=== PATIENT | male | born 1950 | race Caucasian/White ===

== ENCOUNTER 2021-03-09 13:02 | Observation (INO) | payer MEDICARE, OTHER ==
[~2021-03-09] VITALS: Ht 188 cm; Wt 114.0 kg
[2021-03-09] MEDS ORDERED: HYDROXYCHLOR200 M1 PO (14:09)
[2021-03-09] MEDS ORDERED: LOSARTAN POTASS25 MG PO (14:09)
[2021-03-09] MEDS ORDERED: HYDROCODONE BIT10 MG (14:10)
[2021-03-09 14:30] LABS: HEMATOCRIT 49.8 % (39.0-50.0); HEMOGLOBIN 16.8 g/dl (14.0-18.0); IMMATURE GRANULOCYTES 0.3 % (0.0-5.0); MEAN CELL VOLUME 89.7 fL CALC (80.0-100.0); MEAN CORPUSCULAR HGB 30.3 pG CALC (26.0-32.0); MEAN CORPUSCULAR HGB CONC 33.7 g/dL CAL (32.0-36.0); NEUT# 9.13 thou/uL (1.82-7.42); RED BLOOD COUNT 5.55 mill/uL (4.70-6.10); RED CELL DISTRI WIDTH 13.3 % (11.5-15.5)
[2021-03-09 14:45] LABS: ALBUMIN 4.1 g/dL (3.2-5.0); ALKALINE PHOSPHATASE 159 u/l (38-126); ANION GAP 11 (6-22 (CALC)); BUN 18 mg/dL (8-23); BUN/CREATININE RATIO 26 (12-20 (CALC)); CARBON DIOXIDE 26 mmol/l (22-30); CHLORIDE 103 mmol/l (95-108); CREATININE 0.7 mg/dL (0.7-1.3); GFR > 60 ML/MIN (>=60 (CALC)); GFR FOR AFR.AMER. > 60 ML/MIN (>=60 (CALC)); POTASSIUM 4.2 mmol/l (3.5-5.1); SGOT/AST 22 u/l (19-48); SODIUM 136 mmol/l (137-146); TOTAL PROTEIN 7.5 g/dL (6.3-8.2)
[2021-03-09 14:56] LABS: MYOGLOBIN 30 ng/mL (0 - 121)
[2021-03-09 19:31] VITALS: BP 162/82
[2021-03-10] VITALS: BP 163/88
[2021-03-10 04:00] VITALS: BP 185/89
[2021-03-10 05:31] LABS: HEMATOCRIT 49.2 % (39.0-50.0); HEMOGLOBIN 16.6 g/dl (14.0-18.0); IMMATURE GRANULOCYTES 0.3 % (0.0-5.0); MEAN CELL VOLUME 89.9 fL CALC (80.0-100.0); MEAN CORPUSCULAR HGB 30.3 pG CALC (26.0-32.0); MEAN CORPUSCULAR HGB CONC 33.7 g/dL CAL (32.0-36.0); NEUT# 5.85 thou/uL (1.82-7.42); RED BLOOD COUNT 5.47 mill/uL (4.70-6.10); RED CELL DISTRI WIDTH 13.1 % (11.5-15.5)
[2021-03-10 06:07] LABS: ALBUMIN 3.7 g/dL (3.2-5.0); ALKALINE PHOSPHATASE 134 u/l (38-126); ANION GAP 13 (6-22 (CALC)); BILIRUBIN, TOTAL 0.8 mg/dL (0.0-1.4); BUN 15 mg/dL (8-23); BUN/CREATININE RATIO 23 (12-20 (CALC)); C-REACTIVE PROTEIN 6.1 mg/dL (0-0.9); CARBON DIOXIDE 23 mmol/l (22-30); CHLORIDE 105 mmol/l (95-108); CREATININE 0.7 mg/dL (0.7-1.3); GFR > 60 ML/MIN (>=60 (CALC)); GFR FOR AFR.AMER. > 60 ML/MIN (>=60 (CALC)); POTASSIUM 4.6 mmol/l (3.5-5.1); SGOT/AST 20 u/l (19-48); SODIUM 135 mmol/l (137-146); TOTAL PROTEIN 6.8 g/dL (6.3-8.2)
[2021-03-10] MEDS ORDERED: ANORO ELLIPTA 61 AER IN (07:01)
[2021-03-10] MEDS ORDERED: LANTUS100 UNIT SC (07:01)
[2021-03-10] MEDS ORDERED: CREON1 CAP PO (07:02)
[2021-03-10] MEDS ORDERED: SERTRALINE25 MG PO (07:02)
[2021-03-10] MEDS ORDERED: LISINOPRIL10 MG PO (07:02)
[2021-03-10] MEDS ORDERED: GLIMEPIRIDE2 MG PO (07:03)
[2021-03-10] MEDS ORDERED: NIACINAMIDE XX (07:04)
[2021-03-10] MEDS ORDERED: [UNRECOGNIZED DRUG - OTHER] PO (07:04)
[2021-03-10] MEDS ORDERED: CITRACA1 PO (07:04)
[2021-03-10] MEDS ORDERED: ACITRETIN10 MG (07:05)
[2021-03-10] MEDS ORDERED: D31000 UNIT PO (07:05)
[2021-03-10] MEDS ORDERED: CRESTOR10 MG PO (07:05)
[2021-03-10] MEDS ORDERED: PROBIOTI2 (07:05)
[2021-03-10] MEDS ORDERED: ACETYL SALICYLIC ACI XX (07:06)
[2021-03-10 08:00] VITALS: BP 176/88
[2021-03-10] MEDS ORDERED: COZAAR100 MG PO (09:20)
[2021-03-10] MEDS ORDERED: LORTAB 5/3255 MG PO (09:22)
[2021-03-10] MEDS ORDERED: RAYOS5 MG PO (09:25)
[2021-03-10] MEDS ORDERED: METFORMIN500 M2 PO (09:25)
[2021-03-10] MEDS ORDERED: TENORMIN PO (09:26)
[2021-03-10] MEDS ORDERED: KETOCONAZOLE2 % EX (09:30)
[2021-03-10] MEDS ORDERED: FUROSEMIDE20 MG PO (09:31)
[2021-03-10] MEDS ORDERED: DOXY-CAPS100 MG PO (09:32)
[2021-03-10 10:57] VITALS: BP 148/75
[2021-03-10] MEDS ORDERED: ZPAK PO (12:36)
[2021-03-10] MEDS ORDERED: ASPIRIN REGULA325 M1 PO (12:36)
== END 2021-03-10 14:19 | disposition home or self-care (01) ==
LOC: ED 13:02 → ED-I 14:15 → ED 14:15 → MS2 17:52 → ED 18:00 → ED-I 18:00 → MS2 03-10 14:19
PROVIDERS: Emergency Medicine; ADMIT Internal Medicine; ATTEND Internal Medicine
PROC: XW033E5 Introduction of Remdesivir Anti-infective into Peripheral Vein, Percutaneous Approach, New Technology Group 5 (ICD-10-PCS; principal; 2021-03-10)
DX: U07.1 COVID-19 (principal); J12.82 Pneumonia due to coronavirus disease 2019; J47.9 Bronchiectasis, uncomplicated; I10 Essential (primary) hypertension; E11.9 Type 2 diabetes mellitus without complications; M35.3 Polymyalgia rheumatica; Z87.01 Personal history of pneumonia (recurrent); Z90.2 Acquired absence of lung [part of]; Z79.84 Long term (current) use of oral hypoglycemic drugs; Z79.4 Long term (current) use of insulin
CPT/HCPCS: J1650

== ENCOUNTER 2021-12-10 13:44 | Emergency (ER) | payer MEDICARE ==
[~2021-12-10] VITALS: Ht 188 cm; Wt 125.0 kg
[~2021-12-10 13:44] MED LIST: ACETYL SALICYLIC ACI XX; ACITRETIN10 MG; ANORO ELLIPTA 61 AER IN; ASPIRIN REGULA325 M1 PO; CITRACA1 PO; COZAAR100 MG PO; CREON1 CAP PO; CRESTOR10 MG PO; D31000 UNIT PO; DOXY-CAPS100 MG PO; FUROSEMIDE20 MG PO; GLIMEPIRIDE2 MG PO; HYDROCODONE BIT10 MG; HYDROXYCHLOR200 M1 PO; KETOCONAZOLE2 % EX; LANTUS100 UNIT SC; LISINOPRIL10 MG PO; LORTAB 5/3255 MG PO; LOSARTAN POTASS25 MG PO; METFORMIN500 M2 PO; NIACINAMIDE XX; PROBIOTI2; RAYOS5 MG PO; SERTRALINE25 MG PO; TENORMIN PO; ZPAK PO; [UNRECOGNIZED DRUG - OTHER] PO
[2021-12-10 13:53] VITALS: BP 155/91
[2021-12-10] MEDS ORDERED: FARXIGA10 MG (14:00)
[2021-12-10] MEDS ORDERED: GLIPIZIDE ER5 MG PO (14:00)
[2021-12-10] MEDS ORDERED: XARELTO10 MG PO (14:01)
[2021-12-10] MEDS ORDERED: SILDENAFIL20 MG (14:01)
[2021-12-10] MEDS ORDERED: BUMETANIDE1 MG PO (14:02)
[2021-12-10] MEDS ORDERED: NAPROXEN250 MG PO (14:03)
[2021-12-10] MEDS ORDERED: GLUCOSAMINE500 M3 PO (14:04)
[2021-12-10 14:48] LABS: HEMATOCRIT 38.9 % (39.0-50.0); HEMOGLOBIN 12.1 g/dl (14.0-18.0); IMMATURE GRANULOCYTES 0.2 % (0.0-5.0); MEAN CORPUSCULAR HGB 25.2 pG CALC (26.0-32.0); MEAN CORPUSCULAR HGB CONC 31.1 g/dL CAL (32.0-36.0); NEUT# 6.04 thou/uL (1.82-7.42); RED BLOOD COUNT 4.8 mill/uL (4.70-6.10); RED CELL DISTRI WIDTH 16.2 % (11.5-15.5)
[2021-12-10 14:52] LABS: ALBUMIN 4.6 g/dL (3.2-5.0); ALKALINE PHOSPHATASE 205 u/l (38-126); ANION GAP 17 (6-22 (CALC)); BUN 17 mg/dL (8-23); BUN/CREATININE RATIO 18 (12-20 (CALC)); CARBON DIOXIDE 26 mmol/l (22-30); CHLORIDE 100 mmol/l (95-108); CREATININE 0.9 mg/dL (0.7-1.3); GFR FOR AFR.AMER. > 60 ML/MIN (>=60 (CALC)); GFR OTHER RACES > 60 ML/MIN (>=60 (CALC)); POTASSIUM 3.8 mmol/l (3.5-5.1); SGOT/AST 32 u/l (19-48); SODIUM 138 mmol/l (137-146)
[2021-12-10 14:57] LABS: BILIRUBIN, TOTAL 0.5 mg/dL (0.0-1.4); TOTAL PROTEIN 8.2 g/dL (6.3-8.2)
[2021-12-10 16:30] LABS: URINE BILIRUBIN - DIPSTICK NEGATIVE (NEGATIVE); URINE BLOOD DIPSTICK NEGATIVE (NEGATIVE); URINE COLOR YELLOW; URINE GLUCOSE - DIPSTICK >=1000 mg/dL (NEGATIVE); URINE KETONE NEGATIVE (NEGATIVE); URINE LEUK ESTERASE NEGATIVE (NEGATIVE); URINE PH 5.5 (4.5-8.0); URINE PROTEIN - DIPSTICK NEGATIVE (NEG-TRACE); URINE SPECIFIC GRAVITY 1.015; URINE UROBILINOGEN - DIPSTICK 0.2 E.U./dL (0.2)
[2021-12-10 16:31] LABS: URINE NITRITE - DIPSTICK NEGATIVE (Negative)
[2021-12-10 17:15] VITALS: BP 155/91
== END 2021-12-10 17:15 | disposition home or self-care (01) ==
LOC: ED 13:44
PROVIDERS: Nurse Practitioner
DX: R60.0 Localized edema (principal); I11.0 Hypertensive heart disease with heart failure; I50.9 Heart failure, unspecified; I42.9 Cardiomyopathy, unspecified; E11.9 Type 2 diabetes mellitus without complications; Z79.84 Long term (current) use of oral hypoglycemic drugs; M79.89 Other specified soft tissue disorders

== ENCOUNTER 2021-12-28 13:15 | Emergency (ER) | payer MEDICARE ==
[~2021-12-28] VITALS: Ht 188 cm; Wt 125.0 kg
[2021-12-28] VITALS (7 sets, daily range): BP systolic 104–124; BP diastolic 52–73
[~2021-12-28 13:15] MED LIST changes: +BUMETANIDE1 MG PO; +FARXIGA10 MG; +GLIPIZIDE ER5 MG PO; +GLUCOSAMINE500 M3 PO; +NAPROXEN250 MG PO; +SILDENAFIL20 MG; +XARELTO10 MG PO
[2021-12-28 14:06] LABS: HEMOGLOBIN 10.8 g/dl (14.0-18.0); IMMATURE GRANULOCYTES 0.1 % (0.0-5.0); MEAN CELL VOLUME 76.3 fL CALC (80.0-100.0); MEAN CORPUSCULAR HGB 23.5 pG CALC (26.0-32.0); MEAN CORPUSCULAR HGB CONC 30.9 g/dL CAL (32.0-36.0); NEUT# 8.07 thou/uL (1.82-7.42); RED BLOOD COUNT 4.59 mill/uL (4.70-6.10); RED CELL DISTRI WIDTH 17.9 % (11.5-15.5)
[2021-12-28 14:26] LABS: ALBUMIN 3.8 g/dL (3.2-5.0); ALKALINE PHOSPHATASE 179 u/l (38-126); ANION GAP 13 (6-22 (CALC)); BILIRUBIN, TOTAL 0.4 mg/dL (0.0-1.4); BUN 21 mg/dL (8-23); BUN/CREATININE RATIO 22 (12-20 (CALC)); C-REACTIVE PROTEIN 1.5 mg/dL (0-0.9); CARBON DIOXIDE 24 mmol/l (22-30); CHLORIDE 100 mmol/l (95-108); GFR FOR AFR.AMER. > 60 ML/MIN (>=60 (CALC)); GFR OTHER RACES > 60 ML/MIN (>=60 (CALC)); POTASSIUM 3.9 mmol/l (3.5-5.1); SGOT/AST 28 u/l (19-48); SODIUM 134 mmol/l (137-146); TOTAL PROTEIN 7.1 g/dL (6.3-8.2)
[2021-12-28] MEDS ORDERED: VIBRAMYCIN100 M2 PO (15:23)
[2021-12-28] MEDS ORDERED: LORTAB 1010 MG PO (15:23)
[2021-12-30] MEDS ORDERED: LORTAB 1010 MG PO (15:42)
== END 2021-12-28 16:40 | disposition home or self-care (01) ==
LOC: ED 13:15
PROVIDERS: Nurse Practitioner
PROC: 0HDLXZZ Extraction of Left Lower Leg Skin, External Approach (ICD-10-PCS; principal; 2021-12-28)
PROC: 0HDKXZZ Extraction of Right Lower Leg Skin, External Approach (ICD-10-PCS; 2021-12-28)
DX: I87.2 Venous insufficiency (chronic) (peripheral) (principal); L97.929 Non-pressure chronic ulcer of unspecified part of left lower leg with unspecified severity; L97.919 Non-pressure chronic ulcer of unspecified part of right lower leg with unspecified severity; L03.116 Cellulitis of left lower limb; L03.115 Cellulitis of right lower limb; M35.3 Polymyalgia rheumatica; I10 Essential (primary) hypertension; E11.9 Type 2 diabetes mellitus without complications; Z79.84 Long term (current) use of oral hypoglycemic drugs

== ENCOUNTER 2022-01-07 12:56 | Inpatient (IN) | payer MEDICARE ==
[~2022-01-07] VITALS: Ht 188 cm; Wt 126.0 kg
[~2022-01-07 12:56] MED LIST changes: +LORTAB 1010 MG PO; -SILDENAFIL20 MG; +SILDENAFIL20 MG PO; +VIBRAMYCIN100 M2 PO
[2022-01-07 14:19] LABS: HEMOGLOBIN 10.5 g/dl (14.0-18.0); IMMATURE GRANULOCYTES 0.2 % (0.0-5.0); MEAN CELL VOLUME 74.3 fL CALC (80.0-100.0); MEAN CORPUSCULAR HGB 22.3 pG CALC (26.0-32.0); NEUT# 8.58 thou/uL (1.82-7.42); RED BLOOD COUNT 4.71 mill/uL (4.70-6.10); RED CELL DISTRI WIDTH 18.6 % (11.5-15.5)
[2022-01-07] MEDS ORDERED: GLUCOTROL XL10 MG PO (14:23)
[2022-01-07 14:28] LABS: INTERNATIONAL NORMALIZED RATIO 1.1 RATIO (0.7-1.3)
[2022-01-07 14:31] LABS: ALKALINE PHOSPHATASE 157 u/l (38-126); ANION GAP 16 (6-22 (CALC)); BUN 19 mg/dL (8-23); BUN/CREATININE RATIO 18 (12-20 (CALC)); CARBON DIOXIDE 28 mmol/l (22-30); CHLORIDE 98 mmol/l (95-108); CREATININE 1.1 mg/dL (0.7-1.3); GFR FOR AFR.AMER. > 60 ML/MIN (>=60 (CALC)); GFR OTHER RACES > 60 ML/MIN (>=60 (CALC)); POTASSIUM 4.3 mmol/l (3.5-5.1); SGOT/AST 29 u/l (19-48); SODIUM 137 mmol/l (137-146); TOTAL PROTEIN 8.3 g/dL (6.3-8.2)
[2022-01-07 14:32] LABS: ALBUMIN 4.6 g/dL (3.2-5.0); BILIRUBIN, TOTAL 0.9 mg/dL (0.0-1.4)
[2022-01-07 18:48] VITALS: BP 124/71
[2022-01-07] MEDS ORDERED: XARELTO20 MG PO (20:29)
[2022-01-07] MEDS ORDERED: LORTAB 1010 MG PO (20:30)
[2022-01-07 22:55] VITALS: BP 115/66
[2022-01-08] VITALS (9 sets, daily range): BP systolic 104–137; BP diastolic 61–77
[2022-01-08 05:28] LABS: HEMATOCRIT 33.1 % (39.0-50.0); HEMOGLOBIN 9.6 g/dl (14.0-18.0); MEAN CELL VOLUME 75.6 fL CALC (80.0-100.0); MEAN CORPUSCULAR HGB 21.9 pG CALC (26.0-32.0); RED BLOOD COUNT 4.38 mill/uL (4.70-6.10); RED CELL DISTRI WIDTH 18.7 % (11.5-15.5)
[2022-01-08 06:01] LABS: ANION GAP 15 (6-22 (CALC)); BUN 21 mg/dL (8-23); BUN/CREATININE RATIO 19 (12-20 (CALC)); CARBON DIOXIDE 28 mmol/l (22-30); CHLORIDE 97 mmol/l (95-108); CREATININE 1.1 mg/dL (0.7-1.3); GFR FOR AFR.AMER. > 60 ML/MIN (>=60 (CALC)); GFR OTHER RACES > 60 ML/MIN (>=60 (CALC)); MAGNESIUM 2.5 mg/dL (1.6-2.3); POTASSIUM 4.7 mmol/l (3.5-5.1); SODIUM 136 mmol/l (137-146)
[2022-01-09 03:41] VITALS: BP 134/75
[2022-01-09 05:50] VITALS: BP 129/73
[2022-01-09 14:14] LABS: ANION GAP 14 (6-22 (CALC)); BUN 22 mg/dL (8-23); BUN/CREATININE RATIO 20 (12-20 (CALC)); CARBON DIOXIDE 28 mmol/l (22-30); CHLORIDE 98 mmol/l (95-108); CREATININE 1.1 mg/dL (0.7-1.3); GFR FOR AFR.AMER. > 60 ML/MIN (>=60 (CALC)); GFR OTHER RACES > 60 ML/MIN (>=60 (CALC)); POTASSIUM 4.3 mmol/l (3.5-5.1); SODIUM 136 mmol/l (137-146)
[2022-01-09 14:30] VITALS: BP 129/73
[2022-01-09 17:53] VITALS: BP 115/58
[2022-01-09 19:00] VITALS: BP 115/58
[2022-01-09 22:48] VITALS: BP 119/71
[2022-01-10 03:49] VITALS: BP 151/81
[2022-01-10 04:00] VITALS: BP 151/81
[2022-01-10 05:41] LABS: HEMATOCRIT 29.5 % (39.0-50.0); HEMOGLOBIN 8.7 g/dl (14.0-18.0); IMMATURE GRANULOCYTES 0.2 % (0.0-5.0); MEAN CELL VOLUME 75.8 fL CALC (80.0-100.0); MEAN CORPUSCULAR HGB 22.4 pG CALC (26.0-32.0); MEAN CORPUSCULAR HGB CONC 29.5 g/dL CAL (32.0-36.0); NEUT# 6.39 thou/uL (1.82-7.42); RED BLOOD COUNT 3.89 mill/uL (4.70-6.10); RED CELL DISTRI WIDTH 18.4 % (11.5-15.5)
[2022-01-10 05:50] LABS: ALKALINE PHOSPHATASE 133 u/l (38-126); BUN 21 mg/dL (8-23); BUN/CREATININE RATIO 20 (12-20 (CALC)); CARBON DIOXIDE 27 mmol/l (22-30); CHLORIDE 101 mmol/l (95-108); GFR FOR AFR.AMER. > 60 ML/MIN (>=60 (CALC)); GFR OTHER RACES > 60 ML/MIN (>=60 (CALC)); SGOT/AST 17 u/l (19-48); SODIUM 135 mmol/l (137-146)
[2022-01-10 05:52] LABS: ANION GAP 12 (6-22 (CALC)); POTASSIUM 4.5 mmol/l (3.5-5.1)
[2022-01-10 05:54] LABS: ALBUMIN 3.5 g/dL (3.2-5.0); BILIRUBIN, TOTAL 0.3 mg/dL (0.0-1.4); TOTAL PROTEIN 6.2 g/dL (6.3-8.2)
[2022-01-10 06:51] VITALS: BP 123/71
[2022-01-10 14:39] VITALS: BP 123/71
[2022-01-10 19:22] VITALS: BP 106/58
[2022-01-11 00:05] VITALS: BP 140/71
[2022-01-11 04:19] VITALS: BP 136/77
[2022-01-11 06:19] VITALS: BP 133/70
[2022-01-11 10:25] VITALS: BP 117/63
[2022-01-11 16:08] VITALS: BP 123/69
[2022-01-11 19:10] VITALS: BP 153/77
[2022-01-12 00:26] VITALS: BP 138/71
[2022-01-12 05:19] LABS: HEMOGLOBIN 9.9 g/dl (14.0-18.0); MEAN CELL VOLUME 73.9 fL CALC (80.0-100.0); MEAN CORPUSCULAR HGB 21.5 pG CALC (26.0-32.0); MEAN CORPUSCULAR HGB CONC 29.1 g/dL CAL (32.0-36.0); RED BLOOD COUNT 4.6 mill/uL (4.70-6.10); RED CELL DISTRI WIDTH 18.8 % (11.5-15.5)
[2022-01-12 05:42] LABS: ANION GAP 15 (6-22 (CALC)); BUN 18 mg/dL (8-23); BUN/CREATININE RATIO 16 (12-20 (CALC)); CARBON DIOXIDE 28 mmol/l (22-30); CHLORIDE 97 mmol/l (95-108); CREATININE 1.1 mg/dL (0.7-1.3); GFR FOR AFR.AMER. > 60 ML/MIN (>=60 (CALC)); GFR OTHER RACES > 60 ML/MIN (>=60 (CALC)); MAGNESIUM 2.3 mg/dL (1.6-2.3); POTASSIUM 4.3 mmol/l (3.5-5.1); SODIUM 136 mmol/l (137-146)
[2022-01-12 06:09] VITALS: BP 145/84
[2022-01-12 10:24] VITALS: BP 126/71
[2022-01-12] MEDS ORDERED: PROTONIX40 M2 PO (10:26)
[2022-01-12] MEDS ORDERED: LEVAQUIN750 M1 PO (10:27)
== END 2022-01-12 14:03 | disposition home health service (06) | DRG 603 ==
LOC: ED 12:56 → MS2 17:47
PROVIDERS: Internal Medicine; Nurse Practitioner Family; ADMIT Internal Medicine; ATTEND Internal Medicine
DX: L03.116 Cellulitis of left lower limb (principal); E87.20 Acidosis, unspecified; I48.19 Other persistent atrial fibrillation; D62 Acute posthemorrhagic anemia; I50.32 Chronic diastolic (congestive) heart failure; I87.312 Chronic venous hypertension (idiopathic) with ulcer of left lower extremity; L97.929 Non-pressure chronic ulcer of unspecified part of left lower leg with unspecified severity; L03.115 Cellulitis of right lower limb; I11.0 Hypertensive heart disease with heart failure; E11.9 Type 2 diabetes mellitus without complications; I27.20 Pulmonary hypertension, unspecified; J47.9 Bronchiectasis, uncomplicated; I49.5 Sick sinus syndrome; R19.5 Other fecal abnormalities; D75.1 Secondary polycythemia; M35.3 Polymyalgia rheumatica; B96.5 Pseudomonas (aeruginosa) (mallei) (pseudomallei) as the cause of diseases classified elsewhere; Z79.84 Long term (current) use of oral hypoglycemic drugs; Z79.01 Long term (current) use of anticoagulants; Z95.0 Presence of cardiac pacemaker; Z90.2 Acquired absence of lung [part of]; Z79.891 Long term (current) use of opiate analgesic; Z79.52 Long term (current) use of systemic steroids; Z86.16 Personal history of COVID-19; E11.622 Type 2 diabetes mellitus with other skin ulcer
CPT/HCPCS: J1756; J3370; S0164

== ENCOUNTER 2022-03-29 09:40 | Day surgery (SDC) | payer MEDICARE ==
[~2022-03-29] VITALS: Ht 188 cm; Wt 114.8 kg
[~2022-03-29 09:40] MED LIST changes: +FARXIGA SC; -FARXIGA10 MG; +FARXIGA10 MG SC; +GLUCOTROL XL10 MG PO; +LEVAQUIN750 M1 PO; +PROTONIX40 M2 PO; +XARELTO20 MG PO
[2022-03-29] MEDS ORDERED: OZEMPIC2 MG IJ (09:57)
[2022-03-29] MEDS ORDERED: ALBUTEROL SUL0.083 % IN (09:59)
[2022-03-29] MEDS ORDERED: TRELEGY ELLIPTA1 AER (10:00)
[2022-03-29 12:29] VITALS: BP 147/89
== END 2022-03-29 12:29 | disposition home or self-care (01) ==
LOC: ENDO 09:40 → ORM 11:00 → ENDO 12:29 → ORM 13:50
PROVIDERS: ATTEND Internal Medicine Gastroenterology
PROC: 0DBK8ZX Excision of Ascending Colon, Via Natural or Artificial Opening Endoscopic, Diagnostic (ICD-10-PCS; principal; 2022-03-29)
PROC: 0DBL8ZX Excision of Transverse Colon, Via Natural or Artificial Opening Endoscopic, Diagnostic (ICD-10-PCS; 2022-03-29)
PROC: 0DBP8ZX Excision of Rectum, Via Natural or Artificial Opening Endoscopic, Diagnostic (ICD-10-PCS; 2022-03-29)
PROC: 0DB98ZX Excision of Duodenum, Via Natural or Artificial Opening Endoscopic, Diagnostic (ICD-10-PCS; 2022-03-29)
PROC: 0DB78ZX Excision of Stomach, Pylorus, Via Natural or Artificial Opening Endoscopic, Diagnostic (ICD-10-PCS; 2022-03-29)
PROC: 0DB38ZX Excision of Lower Esophagus, Via Natural or Artificial Opening Endoscopic, Diagnostic (ICD-10-PCS; 2022-03-29)
DX: K21.01 Gastro-esophageal reflux disease with esophagitis, with bleeding (principal); K29.71 Gastritis, unspecified, with bleeding; K31.89 Other diseases of stomach and duodenum; K55.20 Angiodysplasia of colon without hemorrhage; E11.69 Type 2 diabetes mellitus with other specified complication; D12.2 Benign neoplasm of ascending colon; D12.3 Benign neoplasm of transverse colon; K62.1 Rectal polyp; K64.8 Other hemorrhoids; D62 Acute posthemorrhagic anemia; E78.5 Hyperlipidemia, unspecified; I48.20 Chronic atrial fibrillation, unspecified; I10 Essential (primary) hypertension; M35.3 Polymyalgia rheumatica; Z79.85 Long-term (current) use of injectable non-insulin antidiabetic drugs; Z79.84 Long term (current) use of oral hypoglycemic drugs

== ENCOUNTER 2022-07-12 07:45 | Day surgery (SDC) | payer MEDICARE ==
[~2022-07-12] VITALS: Ht 188 cm; Wt 53.1 kg
[~2022-07-12 07:45] MED LIST changes: +ALBUTEROL SUL0.083 % IN; +EQ OMEPRAZOLE20 MG PO; +OZEMPIC2 MG IJ; +TRELEGY ELLIPTA1 AER; +TRESIBA100 UNIT/M IN
[2022-07-12 10:35] VITALS: BP 128/84
== END 2022-07-12 10:49 | disposition home or self-care (01) ==
LOC: ORM 07:45
PROVIDERS: ATTEND Internal Medicine Gastroenterology
PROC: 0DBK8ZX Excision of Ascending Colon, Via Natural or Artificial Opening Endoscopic, Diagnostic (ICD-10-PCS; principal; 2022-07-12)
PROC: 0DBL8ZX Excision of Transverse Colon, Via Natural or Artificial Opening Endoscopic, Diagnostic (ICD-10-PCS; 2022-07-12)
PROC: 0DBN8ZX Excision of Sigmoid Colon, Via Natural or Artificial Opening Endoscopic, Diagnostic (ICD-10-PCS; 2022-07-12)
PROC: 0DBP8ZX Excision of Rectum, Via Natural or Artificial Opening Endoscopic, Diagnostic (ICD-10-PCS; 2022-07-12)
PROC: 0DBH8ZX Excision of Cecum, Via Natural or Artificial Opening Endoscopic, Diagnostic (ICD-10-PCS; 2022-07-12)
DX: D50.9 Iron deficiency anemia, unspecified (principal); D12.2 Benign neoplasm of ascending colon; D12.0 Benign neoplasm of cecum; D12.5 Benign neoplasm of sigmoid colon; D12.3 Benign neoplasm of transverse colon; K62.1 Rectal polyp; K57.30 Diverticulosis of large intestine without perforation or abscess without bleeding; K64.8 Other hemorrhoids; E11.69 Type 2 diabetes mellitus with other specified complication; K22.70 Barrett's esophagus without dysplasia; E78.5 Hyperlipidemia, unspecified; I48.20 Chronic atrial fibrillation, unspecified; I10 Essential (primary) hypertension; M35.3 Polymyalgia rheumatica; Z79.85 Long-term (current) use of injectable non-insulin antidiabetic drugs; Z87.19 Personal history of other diseases of the digestive system; Z86.010 Personal history of colon polyps

== ENCOUNTER 2023-11-27 09:09 | Emergency (ER) | payer MEDICARE ==
[~2023-11-27] VITALS: Ht 188 cm; Wt 101.2 kg
[2023-11-27] MEDS ORDERED: MORPHINE SULFATE 4 MG/ML VIAL IM ONE (10:05)
[2023-11-27 11:00] VITALS: BP 161/90
[2023-11-27] MEDS ORDERED: CYCLOBENZAPRINE10 MG PO ×2 (11:27→11:36)
== END 2023-11-27 12:11 | disposition home or self-care (01) ==
LOC: ED 09:09
DX: S39.012A Strain of muscle, fascia and tendon of lower back, initial encounter (principal); I10 Essential (primary) hypertension; E11.9 Type 2 diabetes mellitus without complications; M35.3 Polymyalgia rheumatica; X58.XXXA Exposure to other specified factors, initial encounter; Z95.0 Presence of cardiac pacemaker; Z79.4 Long term (current) use of insulin; Z79.85 Long-term (current) use of injectable non-insulin antidiabetic drugs

== ENCOUNTER 2024-03-05 12:58 | Inpatient (IN) | payer MEDICARE ==
[~2024-03-05] VITALS: Ht 188 cm; Wt 78.4 kg
[2024-03-05] VITALS (35 sets, daily range): BP systolic 113–142; BP diastolic 50–110
[~2024-03-05 12:58] MED LIST changes: +ABILIFY10 MG PO; +B121000 MCG PO; +CYCLOBENZAPRINE10 MG PO; +GLUCOSAMINE SULFATE XX; +PROSCAR5 MG PO; +TAMSULOSIN0.4 MG PO
--- NOTE | 2024-03-05 13:15 | NUR ---
PT TRIAGED AND PLACED BACK INTO ER LOBBY
--- NOTE | 2024-03-05 14:06 | NUR ---
PT TO ROOM WITH STEADY GAIT
[2024-03-05] MEDS ORDERED: AZITHROMYCIN 250 MG/TAB PO ONE (14:30)
[2024-03-05] MEDS ORDERED: IPRATROPIUM-Albuterol 0.5MG-2.5MG/3 ML NEB ONE ×2 (14:30)
[2024-03-05] MEDS ORDERED: methylPREDNISolone SODIUM SUCC 125 MG/2 ML SDV IV ONE (14:30)
[2024-03-05] MEDS ORDERED: cefTRIAXone SODIUM 2 GM in SODIUM CHLORIDE 0.9% 100 ML IV ONE (14:30)
[2024-03-05] MEDS ORDERED: SODIUM CHLORIDE 0.9% 1,000 ML IV ONE (14:30)
[2024-03-05 14:56] LABS: BASO% 0.2 % (0-3); HEMATOCRIT 47.3 % (39.0-50.0); HEMOGLOBIN 16.3 g/dl (14.0-18.0); IMMATURE GRANULOCYTES 0.7 % (0.0-5.0); LYMPH% 4.4 % (15-41); MEAN CORPUSCULAR HGB 30.5 pG CALC (26.0-32.0); MEAN CORPUSCULAR HGB CONC 34.5 g/dL CAL (32.0-36.0); MONO% 5.6 % (2-13); NEUT# 17.28 thou/uL (1.82-7.42); NEUT% 89.1 % (42-76); RED BLOOD COUNT 5.34 mill/uL (4.70-6.10); RED CELL DISTRI WIDTH 15.3 % (11.5-15.5)
--- NOTE | 2024-03-05 15:00 | NUR ---
PATIENT NOTED IN BED WITH HOB ELEVATED. SPOUSE AT BEDSIDE. HE IS ON O2 @ 2L. NO ACUTE DISTRESS NOTED AT THIS TIME.
[2024-03-05 15:04] LABS: ALBUMIN 4.3 g/dL (3.2-5.0); CREATININE 0.8 mg/dL (0.7-1.3); TOTAL PROTEIN 7.1 g/dL (6.3-8.2)
[2024-03-05 15:11] LABS: MEAN CELL VOLUME 88.6 fL CALC (80.0-100.0); POTASSIUM 3.5 mmol/l (3.5-5.1)
[2024-03-05] MEDS ORDERED: OSELTAMIVIR PHOSPHATE 75 MG/TAB CAP PO ONE (15:35)
--- NOTE | 2024-03-05 16:00 | NUR ---
NO ACUTE DISTRESS NOTED, SPOUSE AT BEDSIDE.
[2024-03-05] MEDS ORDERED: MAGNESIUM HYDROXIDE 30 ML UDC PO PRN (16:40)
[2024-03-05] MEDS ORDERED: ACETAMINOPHEN 325 MG/TAB PO PRN (16:40)
[2024-03-05] MEDS ORDERED: SODIUM CHLORIDE 0.9% 1,000 ML IV PRN (16:40)
[2024-03-05] MEDS ORDERED: INSULIN LISPRO 100 UNITS/ML ML SC SCH (17:00)
[2024-03-05] MEDS ORDERED: Pantoprazole Sodium 40 MG VIAL (Protonix) IV SCH (17:00)
[2024-03-05] MEDS ORDERED: MOUNJARO7.5 M1 (18:07)
--- NOTE | 2024-03-05 18:15 | NUR ---
PATIENT TAKEN TO ICU ROOM 8 VIA WHEELCHAIR ON O2 @ 2L NC. PATIENT NOTED STABLE AT THIS TIME.
--- NOTE | 2024-03-05 18:15 | NUR ---
PATIENT RECEIVED FROM ER VIA WHEELCHAIR. PATIENT AMBULATED TO BED WITH STANDBY ASSIST. PATIENT AXO X3. S1S2 NOTED, HR REGULAR. LUNG SOUNDS COARSE, PRODUCTIVE COUGH NOTED, NO SOB NOTED, ON 2L O2 NC. ABDOMEN SOFT, NON DISTENDED, NON TENDER, WITH ACTIVE BOWEL SOUNDS. PULSES STRONG IN ALL EXTREMITIES. SKIN WARM AND DRY. CALL LIGHT IN REACH.
[2024-03-05] MEDS ORDERED: IPRATROPIUM-Albuterol 0.5MG-2.5MG/3 ML NEB SCH (19:00)
--- NOTE | 2024-03-05 19:30 | NUR ---
RECD PT IN BEDSIDE REPORT FROM RN. PATIENT HAD EXPLOSIVE BM WITH RECENT HX OF EXTENSIVE ABT USE, BM WATERY AND FOUL SMELLING - SENT TO LAB FOR CDIFF R/O. ECUCATED DUTY OFFICER LIGHT, DEMONSTRATED UNDERSTANDING. FALL PRECAUITIONS IN PLACE.
[2024-03-05] MEDS ORDERED: ENOXAPARIN SODIUM 40 MG/0.4 ML SYR SC SCH (21:00)
[2024-03-05] MEDS ORDERED: OSELTAMIVIR PHOSPHATE 75 MG/TAB CAP PO SCH (21:00)
[2024-03-05] MEDS ORDERED: methylPREDNISolone Sod Succ 40 MG/ML SDV IV SCH (21:00)
[2024-03-05 21:01] LABS: C. DIFFICILE TOXIN A&B NEGATIVE (NEGATIVE)
--- NOTE | 2024-03-05 21:30 | NUR ---
PT ORDERED TO RECEIVE LOVENOX PER MD ORDER. DURING PT ADMISSION, DISCUSSED ALLERGIES AND SENSITIVITIES WITH PATIENT AND AND PT COMMUNICATED A PROFOUND HISTORY FOR REPEATED AND LIFE THREATENING GI BLEEDS SECONDARY TO ANTICOAG USE AND LOW MOLECULAR WEIGHT HEPARINS (PER PT AND REPORT). MD ORDERED LOVENOX FOR 2100 ADMINISTRATION. HELD MED PER NURSING INTERVENTION BASED ON PATIENT SAFETY - NOTIFIED , DR TOLLIVER, DR VAZQUEZ - NOTIFIED DR VAZQUEZ THAT SCDS WERE PLACED ON THE PT FOR VTE IN LIGHT OF THE MEDICATION BEING HELD DUE TO ADVERSE EFFECT HISTORY. NOTED PATIENT REPORTS AND DOCUMENTED ALLERGY, ALERT BAND PLACED ON PATIENT.
--- NOTE | 2024-03-05 22:00 | NUR ---
PATIENT CLEANED UP, ASSSITED WITH PARTIAL BED BATH AND LINENS CHANGED. ADMISSION COMPLETED, ASSESSMENT COMPLETED, DENIES PAIN OR SOB AT THIS TIME. REMAINS STABLE AND WITHOUT DISTRESS, RESTING COMFORTABLY WITH CALL LIGHT WITHIN REACH.
[2024-03-06] VITALS (88 sets, daily range): BP systolic 117–175; BP diastolic 70–135
--- NOTE | 2024-03-06 00:47 | NUR ---
PATIENT SLEEPING COMFORTABLY AT THSI TIME, NO NEEDS AT THIS TIME. NO DISTRESS NOTED. CALL LIGHT WITHIN REACH
--- NOTE | 2024-03-06 01:41 | NUR ---
CALLED TO ROOM BY PT FOR SELF REMOVAL OF IV. COMPLETE BED LINEN AND GOWN CHANGE DUE TO IVF RUNNING INTO BED. FLUID REPLACED, IV REPLACED. #20 LW X 1 STICK, (+) BLOOD RETURN, PATENT WITH NO SIGN OF INFILTRATION OR EXTRAVASATION. TOLERATED WELL. REPOSITIONED FOR COMFORT AND LEFT WITH CALL LIGHT WITHIN REACH
--- NOTE | 2024-03-06 04:23 | NUR ---
PT DEMONSTRATES MULTIPLE DESATURATIONS WITH DIFFICULTY WITH RECOVERY, RETIMED 2V SCHEDULED FOR 0500AM TO 1V PORTABLE FOR PROGRESSION WITH RETIMED 2V FOR LATER IN AM SHOULD PT BE ABLE TO RECOVER FROM HIGH MOVEMENTS AND EXERTION BETTER OR MORE IMPROVED.
--- NOTE | 2024-03-06 05:31 | NUR ---
PATIENT RESTING CALMLY WITH NO COMPLAINT OF PAIN OR SOB AT THIS TIME, RESTING WELL WITH CALL LIGHT WITHIN REACH
[2024-03-06 05:52] LABS: BASO% 0.1 % (0-3); HEMOGLOBIN 15.9 g/dl (14.0-18.0); IMMATURE GRANULOCYTES 0.8 % (0.0-5.0); LYMPH% 4.7 % (15-41); MEAN CORPUSCULAR HGB 30.1 pG CALC (26.0-32.0); MEAN CORPUSCULAR HGB CONC 33.8 g/dL CAL (32.0-36.0); MONO% 2.5 % (2-13); NEUT# 13.47 thou/uL (1.82-7.42); NEUT% 91.9 % (42-76); RED BLOOD COUNT 5.28 mill/uL (4.70-6.10); RED CELL DISTRI WIDTH 15.4 % (11.5-15.5)
[2024-03-06 06:06] LABS: BILIRUBIN, TOTAL 1.3 mg/dL (0.2-1.3); CREATININE 0.9 mg/dL (0.7-1.3); MAGNESIUM 2.1 mg/dL (1.6-2.3); POTASSIUM 3.2 mmol/l (3.5-5.1); TOTAL PROTEIN 6.9 g/dL (6.3-8.2)
--- NOTE | 2024-03-06 07:00 | NUR ---
REPORT RECEIVED FROM OFF GOING NURSE.
--- NOTE | 2024-03-06 07:30 | NUR ---
IN TO SEE PATIENT, SPOUSE AT BEDSIDE. BRANDEN AND DR. DELGADILLO MADE AWARE OF ALLERGY TO BLOOD THINNERS.
--- NOTE | 2024-03-06 08:00 | NUR ---
PATIENT NOTED LYING IN BED WITH HOB ELEVATED. NO ACUTE DISTRESS NOTED AT THIS TIME. HE IS HAVING BREAKFAST, SPOUSE AT BEDSIDE. VSS. HE IS ON O2 @ 2L VIA NC WITH SATURATION IN THE MID TO HIGH 90S. WHEEZES AND CRACKLES NOTED THROUGHOUT LUNGS. BOWEL SOUNDS ACTIVE IN ALL FOUR QUADS. ASSESMENT COMPLETED (SEE INTERVENTIONS).
[2024-03-06] MEDS ORDERED: FLUCONAZOLE 50 MG TAB PO SCH (10:00)
[2024-03-06] MEDS ORDERED: LOSARTAN Potassium 50 MG/TAB PO SCH (15:32)
[2024-03-06] MEDS ORDERED: AZITHROMYCIN 500 MG in SODIUM CHLORIDE 0.9% 250 ML IV SCH (16:00)
[2024-03-06] MEDS ORDERED: PANTOPRAZOLE SODIUM Sesquihydr 40 MG/TAB PO SCH (17:00)
--- NOTE | 2024-03-06 18:00 | NUR ---
PATIENT STATED HIS BLOOD SUGAR HAS BEEN 343 AND NO ONE IS CONCERNED. PATIENT WAS EDUCATED ON PROPER DIET. HE CURRENTLY HAS 3 PACKS OF PEANUT BUTTER CRACKERS ON BEDSIDE TABLE. HE ALSO JUST HAD CHOCOLATE FROSTY BROUGHT IN BY HIS . HE WAS MADE AWARE OF THE FOOD CHOICES AND THE EFFECTS IT HAS ON BLOOD SUGARS. PATIENT VERBALIZED UNDERSTANDING.
--- NOTE | 2024-03-06 19:02 | NUR ---
REPORT GIVEN TO ONCOMING NURSE.
--- NOTE | 2024-03-06 20:00 | NUR ---
RECD PT IN BEDSIDE REPORT FROM RN. PRESENT FOR REPORT. EDUCATION PROVIDED REGARDING MONITOR AND PERSEVERATING ON O2 LEVELS WITH INCREASED ANXIETY INDUCING BEHAVIOR NOT GOOD FOR RECOVERING RESPIRATORY STATUS. PATIENT RESTING COMFORTABLY WITH NO SIGN OF DISTRESS, MONITOR PRIVACY MODE, CALL LIGHT IN REACH
--- NOTE | 2024-03-06 22:00 | NUR ---
PATIENT ASSISTED TO REPOSITION AND TO VOID IN URINAL. URINAL EMPTIED. DENIES COMPLAINTS. NO SHORTNESS OF BREATH NOTED. AFEBRILE AT THIS TIME. PT APPEARS MUCH IMPROVED SINCE LAST NIGHT. STATES HE IS 'FEELING ON THE MEND'. RESTING CALMLY WITH NO COMPLAINTS AND CALL LIGHT WITHIN REACH
[2024-03-07] VITALS (49 sets, daily range): BP systolic 130–166; BP diastolic 69–124
--- NOTE | 2024-03-07 02:00 | NUR ---
PT IS SEEN RESTING COMFORTABLY WITH EYES CLOSED. EXHIBITS NO SIGN OF DISTRESS OR DISCOMFORT. CALL LIGHT SEEN WITHIN REACH
--- NOTE | 2024-03-07 05:01 | NUR ---
PATIENT REMAINS STABLE WITH NO SIGN OF DISTRESS AND CALL LIGHT IN REACH
[2024-03-07 05:48] LABS: BASO% 0.1 % (0-3); HEMATOCRIT 43.7 % (39.0-50.0); HEMOGLOBIN 15.3 g/dl (14.0-18.0); IMMATURE GRANULOCYTES 1.3 % (0.0-5.0); LYMPH% 3.1 % (15-41); MEAN CELL VOLUME 88.1 fL CALC (80.0-100.0); MEAN CORPUSCULAR HGB 30.8 pG CALC (26.0-32.0); MONO% 3.2 % (2-13); NEUT# 13.61 thou/uL (1.82-7.42); NEUT% 92.3 % (42-76); RED BLOOD COUNT 4.96 mill/uL (4.70-6.10); RED CELL DISTRI WIDTH 15.4 % (11.5-15.5)
[2024-03-07 05:53] LABS: ALBUMIN 3.5 g/dL (3.2-5.0); BILIRUBIN, TOTAL 0.8 mg/dL (0.2-1.3); CREATININE 0.8 mg/dL (0.7-1.3); MAGNESIUM 2.4 mg/dL (1.6-2.3); POTASSIUM 2.8 mmol/l (3.5-5.1); TOTAL PROTEIN 6.1 g/dL (6.3-8.2)
--- NOTE | 2024-03-07 08:00 | NUR ---
REPORT RECEIVED FROM NIGHT NURSE. PATIENT AXO X3. S1S2 NOTED, HR REGULAR. EXPIRATORY WHEEZES HEARD IN ALL LOBES, CRACKLES HEARD IN LOWER LUNG LOBES. ABDOMEN SOFT, NON DISTENDED, NON TENDER, WITH ACTIVE BOWEL SOUNDS. PULSES STRONG IN ALL EXTREMITIES. SKIN WDI. CALL LIGHT IN REACH.
[2024-03-07] MEDS ORDERED: POTASSIUM CHLORIDE 20 MEQ/TAB PO SCH (08:30)
--- NOTE | 2024-03-07 10:00 | NUR ---
PATIENT SITTING UP WATCHING TV. AT BEDSIDE. ALL NEEDS MET. CALL LIGHT IN REACH.
--- NOTE | 2024-03-07 12:00 | NUR ---
PATIENT SITTING UP IN BED. DENIES NEEDS AT THIS TIME. CALL LIGHT IN REACH.
[2024-03-07 12:22] LABS: URINE BILIRUBIN - DIPSTICK Negative (NEGATIVE); URINE BLOOD DIPSTICK Negative (NEGATIVE); URINE GLUCOSE - DIPSTICK >=1000 mg/dL (NEGATIVE); URINE KETONE Trace mg/dL (NEGATIVE); URINE LEUK ESTERASE Negative (NEGATIVE); URINE NITRITE - DIPSTICK Negative (Negative); URINE PROTEIN - DIPSTICK 30 mg/dL (NEG-TRACE); URINE UROBILINOGEN - DIPSTICK 0.2 E.U./dL (0.2)
[2024-03-07 12:25] LABS: URINE COLOR Yellow
[2024-03-07 12:28] LABS: URINE RBC 0-2 RBC/hpf (0-5); URINE WBC 0-2 WBC/hpf (0-5)
[2024-03-07 12:29] LABS: URINE HYALINE CAST FEW lpf (NONE-RARE)
[2024-03-07] MEDS ORDERED: HYDROcodone 5 MG/Acetaminophen 325 MG/COMBO PO PRN (12:55)
--- NOTE | 2024-03-07 14:00 | NUR ---
PATIENT SITTING UP IN BED WATCHING TV. ALL NEEDS MET. CALL LIGHT IN REACH.
--- NOTE | 2024-03-07 16:00 | NUR ---
PATIENT LAYING DOWN WATCHING TV. ALL NEEDS MET. CALL LIGHT IN REACH.
[2024-03-07] MEDS ORDERED: INSULIN LISPRO 100 UNITS/ML ML SC SCH (17:00)
--- NOTE | 2024-03-07 18:00 | NUR ---
PATIENT SITTING UP IN BED. AT BEDSIDE. DENIES NEEDS AT THIS TIME. CALL LIGHT IN REACH.
--- NOTE | 2024-03-07 20:00 | NUR ---
awake. denies distress. monitor tech shows a fib pvcs paced beats. ivf infusing well. voids per urinal. fall precautions cont.
--- NOTE | 2024-03-07 22:00 | NUR ---
eyes closed. no distress.
--- NOTE | 2024-03-07 23:50 | NUR ---
sao2 shows 89% with good wave form. o2 began @ 1 l/m per nc.
[2024-03-08] VITALS (14 sets, daily range): BP systolic 99–162; BP diastolic 50–117
--- NOTE | 2024-03-08 02:00 | NUR ---
resting quietly. no resp diff. o2 cont.
--- NOTE | 2024-03-08 04:00 | NUR ---
eyes closed. no apparent distress.
--- NOTE | 2024-03-08 05:59 | NUR ---
xray here. pcxr obtained.
--- NOTE | 2024-03-08 07:17 | NUR ---
REPORT RECEIVED FROM NIGHT NURSE. PATIENT AXO X3. S1S2 NOTED, PACER ON TELE. LUNG SOUNDS COARSE, PRODUCTIVE COUGH NOTED, NO SOB, ON 1L O2 NC. ABDOMEN SOFT, NON DISTENDED, NON TENDER, WITH ACTIVE BOWEL SOUNDS. PULSES STRONG IN ALL EXTREMITIES. SKIN WDI. CALL LIGHT IN REACH.
--- NOTE | 2024-03-08 10:00 | NUR ---
PATIENT SITTING UP IN BED. FAMILY AT BEDSIDE. ALL NEEDS MET. CALL LIGHT IN REACH.
[2024-03-08] MEDS ORDERED: FUROSEMIDE 40 MG/4 ML SDV IV SCH (10:30)
--- NOTE | 2024-03-08 12:00 | NUR ---
PATIENT SITTING UP IN BED WATCHING TV. ALL NEEDS MET. CALL LIGHT IN REACH.
[2024-03-08] MEDS ORDERED: POTASSIUM CHLORIDE 20 MEQ/TAB PO SCH (12:30)
--- NOTE | 2024-03-08 14:00 | NUR ---
PATIENT SITTING UP IN BED WATCHING TV. ALL NEEDS MET. CALL LIGHT IN REACH.
--- NOTE | 2024-03-08 16:00 | NUR ---
PATIENT SITTING UP IN BED. FAMILY AT BEDSIDE. ALL NEEDS MET. CALL LIGHT IN REACH.
[2024-03-08] MEDS ORDERED: DOXYCYCLINE100 MG PO (16:01)
--- NOTE | 2024-03-08 17:00 | NUR ---
Discharge instructions given. Patient and family verbalizes understanding of them. Discharged in stable condition via Wheelchair to Home with home health with staff. All belongings sent with pt. IV removed
--- NOTE | 2024-03-09 13:29 | NUR ---
Discharge follow up call completed 03/09/24. Patient states he is doing well and feels a little stronger today. Patient is taking prescribed medictaion as directed. Patient has a follow up appointment with his PCP next week. No needs or concerns vvebalized at this time.
== END 2024-03-08 16:45 | disposition home health service (06) | DRG 193 ==
LOC: ED 12:58 → ED-I 16:20 → ED 16:34 → ICU 16:35
PROVIDERS: Family Medicine; Nurse Practitioner Family; ADMIT Internal Medicine; ATTEND Internal Medicine
DX: J10.00 Influenza due to other identified influenza virus with unspecified type of pneumonia (principal); J96.21 Acute and chronic respiratory failure with hypoxia; B48.8 Other specified mycoses; I11.0 Hypertensive heart disease with heart failure; I50.9 Heart failure, unspecified; E11.9 Type 2 diabetes mellitus without complications; E87.6 Hypokalemia; M35.3 Polymyalgia rheumatica; Z79.84 Long term (current) use of oral hypoglycemic drugs; Z90.2 Acquired absence of lung [part of]
CPT/HCPCS: J0456; J0696; J1815; J1940